=== PATIENT | female | born 1955 | race Caucasian/White ===

== ENCOUNTER → 2017-06-07 | Outpatient (CLI) | payer BC ==
[~2017-06-07] MED LIST: DULO60CA6 PO; LACT1CAP62 PO; LEVO500T69 PO; NITR100C3 PO; OXYC-309 PO
== END ==
LOC: CARD 11:24
PROVIDERS: ATTEND Physician Assistant
DX: E78.5 Hyperlipidemia, unspecified (principal); R07.9 Chest pain, unspecified; Z82.49 Family history of ischemic heart disease and other diseases of the circulatory system
CPT/HCPCS: 93306

== ENCOUNTER → 2017-06-13 | Outpatient (CLI) | payer BC | LOC: CARD 10:08 | PROVIDERS: ATTEND Physician Assistant | DX: R07.9 Chest pain, unspecified (principal); E78.5 Hyperlipidemia, unspecified; Z82.49 Family history of ischemic heart disease and other diseases of the circulatory system | CPT/HCPCS: 93017 ==

== ENCOUNTER → 2017-07-16 | Outpatient (CLI) | payer BC ==
[~2017-07-16] VITALS: Ht 175.3 cm; Wt 82.1 kg
[~2017-07-16] MED LIST changes: +CATHETER FLUSH 10 ML SYR IV PRN
[2017-07-16 09:03] VITALS: BP 122/75
--- NOTE | 2017-07-17 00:21 | STRESS TEST ---
DATE OF SERVICE: 07/16/2017 EXERCISE MYOVIEW STRESS TEST REPORT REFERRING PHYSICIAN: Dr. Emanuel Cummings. PROCEDURE: 07/16/2017 Baseline heart rate is 58. Baseline blood pressure is 125/71. Baseline EKG is sinus rhythm with no ischemic changes. In summary, the patient received 10.9 mCi of technetium-99 Myoview and the resting images were obtained. Then, the patient started exercising with a baseline heart rate, blood pressure and EKG mentioned above. The patient was able to exercise for a total of 10 minutes 45 seconds on standard Henry protocol. With peak exercise level, EKG was showing [address] depression in lead 2, [address] depression in lead 3 and aVF, V4 and V5. Blood pressure was 211/64. During recovery, heart rate and blood pressure returned to baseline. EKG returned to baseline. The resting and stress images were reviewed and compared in the short axis, horizontal long axis, and vertical long axis views. Review of the images showed breast attenuation with typical female pattern. No significant ischemia or infarction. SSS is 2, SDS 2, TID value 1.02. On the gated images, the left ventricle appeared to be normal size with normal contractility. Calculated ejection fraction is 67%. CONCLUSION: 1. Good exercise tolerance a total of 10 minutes and 45 seconds on standard Henry protocol, total of 12.1 METs achieving 92% of maximum expected heart rate. 2. Severe hypertensive response to exercise, achieving maximum blood pressure of 211/64, returned to baseline during recovery. 3. Nondiagnostic EKG changes with exercise returned to baseline during recovery. 4. Typical female pattern with no ischemia or infarction on SPECT images. 5. Normal left ventricular size with normal contractility. Calculated ejection fraction is 67%. Job ID: [id number] DocumentID: [id number] Dictated Date: 07/16/2017 18:31:43 Electronics Computer Mechanic Date: 07/17/2017 00:20:52 Dictated By: LUZ MARIA MD
== END ==
LOC: CARD 07:17
PROVIDERS: ATTEND Physician Assistant
DX: R07.9 Chest pain, unspecified (principal); E78.2 Mixed hyperlipidemia; Z83.3 Family history of diabetes mellitus; Z82.49 Family history of ischemic heart disease and other diseases of the circulatory system
CPT/HCPCS: 78452; 93017

== ENCOUNTER → 2019-07-28 | Outpatient (CLI) | payer BC ==
[~2019-07-28] MED LIST changes: -CATHETER FLUSH 10 ML SYR IV PRN
--- NOTE | 2019-07-28 11:22 | Diagnostic Imaging Report ---
INDICATION: COUGH LT CHEST DISCOMFORT COMPARISON: None FINDINGS: Frontal and lateral views of the chest demonstrate normal heart size and pulmonary vascularity. The lungs are clear. There are no signs of infiltrate, pleural effusions or pneumothoraces. The visualized osseous structures show no acute abnormalities. IMPRESSION: 1. No acute process. No signs of infiltrates, effusions or pneumothoraces. Dictated by: Dictated on workstation # [id number]
== END ==
LOC: RAD 10:14
PROVIDERS: ATTEND Family Medicine
DX: R05 Cough (principal); R07.89 Other chest pain
CPT/HCPCS: 71046

== ENCOUNTER 2021-02-28 09:50 | Outpatient (CLI) | payer BC | END 2021-02-28 10:03 | LOC: SLEEP 09:50 | PROVIDERS: ATTEND Family Medicine | DX: G47.33 Obstructive sleep apnea (adult) (pediatric) (principal) | CPT/HCPCS: G0399 ==

== ENCOUNTER → 2021-06-13 | Outpatient (CLI) | payer BC | LOC: CARD 08:30 | PROVIDERS: ATTEND Internal Medicine Cardiovascular Disease | DX: I11.9 Hypertensive heart disease without heart failure (principal) | CPT/HCPCS: 93306 ==

== ENCOUNTER → 2021-10-04 | Outpatient (CLI) | payer BC ==
--- NOTE | 2021-10-04 17:59 | Diagnostic Imaging Report ---
INDICATION: Cough for 2 weeks. Time of Exam: 1:51 PM Correlation is made with prior chest from 07/28/2019. Heart size is normal. There is some minimal patchy infiltrate in the right mid to upper lung field peripherally. The left lung is clear. There is no effusion or pneumothorax. IMPRESSION: Patchy right upper lobe pneumonia. Dictated by: Dictated on workstation # [id number]
== END ==
LOC: RAD 13:26
PROVIDERS: ATTEND Family Medicine
DX: J18.9 Pneumonia, unspecified organism (principal)
CPT/HCPCS: 71046

== ENCOUNTER → 2021-12-29 | Outpatient (CLI) | payer BC ==
--- NOTE | 2021-12-29 15:46 | Diagnostic Imaging Report ---
INDICATION: Rectal pain EXAM: KUB FINDINGS: The bowel gas pattern is normal. There are no pathologic masses or calcifications. IMPRESSION: Unremarkable abdomen. The patient appears to have had a hernia repair in the right lower quadrant of the abdomen. Dictated by: Dictated on workstation # [id number]
== END ==
LOC: RAD 15:04
PROVIDERS: ATTEND Family Medicine
DX: K62.89 Other specified diseases of anus and rectum (principal)
CPT/HCPCS: 74018

== ENCOUNTER → 2022-02-14 | Outpatient (CLI) | payer BC ==
--- NOTE | 2022-02-14 16:30 | Diagnostic Imaging Report ---
EXAMINATION: Right hip unilateral 2 or 3 views (w/pelvis when done) HISTORY: RT HIP PAIN COMPARISON: None available. FINDINGS: There are no fractures or dislocations. Soft tissues appear normal. There is postoperative change in the right hemipelvis. IMPRESSION: 1. No acute osseous abnormality. Dictated by: Dictated on workstation # [id number]
== END ==
LOC: RAD 13:20
PROVIDERS: ATTEND Family Medicine
DX: M25.551 Pain in right hip (principal)
CPT/HCPCS: 73502

== ENCOUNTER → 2022-05-02 | Outpatient (CLI) | payer BC ==
--- NOTE | 2022-05-02 18:48 | Diagnostic Imaging Report ---
INDICATION: Cough. Hypoxia. COMPARISON: 02/04/2022. FINDINGS: PA and lateral views. The lungs are well-aerated. No air-trapping. There is question of developing patchy infiltrate laterally in the right midlung. The lungs are otherwise clear. No pneumothorax or pleural effusion. The heart is not enlarged. There is deformity of the posterior lateral right 9th rib. This is unchanged from previous exam. IMPRESSION: New density developing laterally in the right midlung. This likely is inflammatory in nature. Dictated by: Dictated on workstation # [id number]
== END ==
LOC: RAD 09:30
PROVIDERS: ATTEND Family Medicine
DX: J98.4 Other disorders of lung (principal); R05.9 Cough, unspecified; R09.02 Hypoxemia
CPT/HCPCS: 71046

== ENCOUNTER → 2022-05-26 | Outpatient (CLI) | payer BC ==
--- NOTE | 2022-05-26 10:10 | Diagnostic Imaging Report ---
INDICATION: Cough PA and lateral chest Heart size and pulmonary vascularity are normal. Lungs are clear. There are no effusions or pneumothoraces. IMPRESSION: Negative chest. Previously seen opacity right upper lobe is resolved. Dictated by: Dictated on workstation # [id number]
== END ==
LOC: RAD 09:32
PROVIDERS: ATTEND Family Medicine
DX: R05.3 Chronic cough (principal)
CPT/HCPCS: 71046

== ENCOUNTER → 2022-11-10 | Outpatient (CLI) | payer BC, MEDICARE ==
--- NOTE | 2022-11-10 09:43 | Diagnostic Imaging Report ---
Indication: Shortness of air and cough x1 week. COMPARISON: 05/26/2022 FINDINGS: Frontal and lateral radiographic views the chest were obtained and show patchy airspace opacities projecting over the inferior margins the right upper lobe. Left lung is relatively clear. There is no large effusion or pneumothorax on either side. Cardiac silhouette and pulmonary vasculature are within normal limits. Osseous structures show no gross acute abnormalities. IMPRESSION:. Probable right upper lobe pneumonia. Follow-up to resolution is advised. Dictated by: Dictated on workstation # [id number]
== END ==
LOC: RAD 09:10
PROVIDERS: ATTEND Family Medicine
DX: R06.00 Dyspnea, unspecified (principal); R06.02 Shortness of breath; R05.9 Cough, unspecified
CPT/HCPCS: 71046